=== PATIENT | male | born 1935 | race Caucasian/White ===

== ENCOUNTER 2022-08-10 16:03 | Emergency (ER) | payer MEDICARE, BC ==
[2022-08-10] MEDS ORDERED: Sodium Chloride 0.9% 10 ML Syringe FLUSH PRN (16:06)
[2022-08-10 16:40] LABS: BASOPHILS ABSOLUTE AUTO 0.01 10^3/uL (0.00-0.10); BASOPHILS PERCENT AUTO 0.1 % (0.0-1.0); EOSINOPHILS ABSOLUTE AUTO 0.11 10^3/uL (0.10-0.30); EOSINOPHILS PERCENT AUTO 1.3 % (1.0-3.0); HEMATOCRIT 36.8 % (40.0-52.0); HEMOGLOBIN 11.9 g/dL (13.0-17.0); IMMATURE GRAN ABSOLUTE AUTO 0.07 10^3/uL (0.00-0.50); IMMATURE GRAN PERCENT AUTO 0.8 % (0.0-5.0); LYMPHOCYTES ABSOLUTE AUTO 0.66 10^3/uL (1.00-4.00); LYMPHOCYTES PERCENT AUTO 7.9 % (20.0-40.0); MEAN CORPUSCULAR HGB CONC 32.3 g/dL (32.0-36.0); MEAN CORPUSCULAR VOLUME 89.8 fL (82.0-92.0); MEAN PLATELET VOLUME 8.5 fL (7.4-10.4); MONOCYTES ABSOLUTE AUTO 0.78 10^3/uL (0.10-0.80); MONOCYTES PERCENT AUTO 9.3 % (2.0-8.0); NEUTROPHILS ABSOLUTE AUTO 6.75 10^3/uL (2.50-7.00); NEUTROPHILS PERCENT AUTO 80.6 % (50.0-70.0); PLATELET COUNT,PLT 266 10^3/uL (150-400); RED CELL DISTRIBUTION WIDTH 13.8 % (11.5-14.5); WHITE BLOOD CELL COUNT,WBC 8.38 10^3/uL (5.00-10.00)
[2022-08-10] MEDS: Metoprolol Tartrate 5 MG/5 ML SDV IVPUSH ONE (16:47)
[2022-08-10 17:02] LABS: ALBUMIN 2.5 g/dL (3.40-5.00); ANION GAP 10.9 mmol/L (5-15); BILIRUBIN TOTAL 0.8 mg/dL (0.2-1.0); C-REACTIVE PROTEIN 6.9 mg/dL (0.0-0.9); CALCIUM 8.1 mg/dL (8.7-10.3); CARBON DIOXIDE,CO2 30.6 mmol/L (21.0-32.0); CREATININE 1.21 mg/dL (0.51-1.17); EST CRCL DRUG DOSING (CG) 39.55 mL/min; POTASSIUM,K 4.5 mmol/L (3.5-5.1); PROTEIN TOTAL,TP 6.4 g/dL (6.4-8.2)
[2022-08-10 17:06] LABS: LACTIC ACID 1.2 mmol/L (0.4-2.0)
[2022-08-10] MEDS: Ibuprofen 600 MG Tab PO ONE (17:54)
[2022-08-10] MEDS: Furosemide 40 MG/4 ML VIAL IVPUSH ONE (18:23)
[2022-08-10] MEDS: Metoprolol Tartrate 25 MG Tab PO ONE (18:39)
== END 2022-08-10 19:29 ==
LOC: KA.ED 16:03
DX: I50.9 Heart failure, unspecified (principal); R00.0 Tachycardia, unspecified; I48.91 Unspecified atrial fibrillation; N18.9 Chronic kidney disease, unspecified; Z88.8 Allergy status to other drugs, medicaments and biological substances; Z88.5 Allergy status to narcotic agent; Z79.899 Other long term (current) drug therapy
CPT/HCPCS: 36415; 71045; 71250; 80053; 83605; 83880; 84484; 85025; 85379; 86140; 87040; 93010; 96374; 96375; 99284; 99285-25; A9270-GY; J1940; J3490